=== PATIENT | female | born 1965 | race Caucasian/White ===

== ENCOUNTER 2020-01-18 08:20 | Outpatient (CLI) | payer OTHER, SELFPAY ==
--- NOTE | ~2020-01-18 | MM_ITS ---
EXAMINATION: MM screening stephanie BI w ancelmo HISTORY: Screening TECHNIQUE: Craniocaudal and mediolateral oblique 3-D tomosynthesis images were obtained and synthetic 2-D images were generated. CAD analysis was submitted and interpreted. COMPARISON: Comparison to multiple prior studies sequentially, with oldest reviewed study dated 12/13. BREAST PARENCHYMAL COMPOSITION: There are scattered areas of fibroglandular density. FINDINGS: There is no evidence of suspicious mass, calcification, or architectural distortion to sugg est malignancy in either breast. There has been no suspicious interval change. IMPRESSION: 1. No mammographic evidence of malignancy. 2. Recommend routine screening mammography in one year. BI-RADS Category 1: Negative Reviewed, dictated and finalized at location A.
== END 2020-01-18 08:21 | disposition home or self-care (01) ==
LOC: ANHIMG 08:22
PROVIDERS: PCP Family Medicine; Visit Provider Obstetrics & Gynecology
DX: Z12.31 Encounter for screening mammogram for malignant neoplasm of breast (principal)
CPT/HCPCS: 77063; 77067

== ENCOUNTER → 2020-11-29 10:43 | Outpatient (CLI) | payer OTHER, SELFPAY ==
--- NOTE | ~2020-11-29 | XR_ITS ---
XR lumbar spine 2-3V DATE: 11/29/2020 11:10 INDICATION: Low back pain TECHNIQUE: Standing AP, lateral and coned lateral lumbosacral views COMPARISON: None FINDINGS: There is mild levoscoliosis of the lumbar spine. No fracture or bone destruction is evident. The included lower thoracic and lumbar pedicles are intac t. There is moderate degenerative disease at L4-5 and severe degenerative disc disease at L5-S1. The sacroiliac joints are intact. IMPRESSION: Mild degenerative disc disease at L4-5 and severe degenerative disc disease at L5-S1 Reviewed, dictated and finalized at location B.
== END ==
PROVIDERS: PCP Family Medicine; Visit Provider Physician Assistant
DX: M51.36 Other intervertebral disc degeneration, lumbar region (principal); M51.37 Other intervertebral disc degeneration, lumbosacral region
CPT/HCPCS: 72100

== ENCOUNTER 2021-01-18 08:22 | Outpatient (CLI) | payer OTHER, SELFPAY ==
--- NOTE | ~2021-01-18 | MM_ITS ---
EXAMINATION: MM screening stephanie BI w ancelmo HISTORY: Screening TECHNIQUE: Craniocaudal and mediolateral oblique 3-D tomosynthesis images were obtained and synthetic 2-D images were generated. CAD analysis was submitted and interpreted. COMPARISON: Comparison to multiple prior studies sequentially, with oldest reviewed study dated 06/2015. BREAST PARENCHYMAL COMPOSITION: There are scattered areas of fibroglandular density. FINDINGS: There are developing asymmetries centrally in the right breast on CC view. The left breast is stable without evidence for malignancy. IMPRESSION: 1. Developing right breast asymmetries. 2. Additional mammographic views and possible breast ultrasound are recommended. BI-RADS Category 0: Incomplete: Needs additional imaging evaluation. Reviewed, dictated and finalized at location A. IMPRESSION: 1. Developing right breast asymmetries. 2. Additional mammographic views and possible breast ultrasound are recommended . BI-RADS Category 0: Incomplete: Needs additional imaging evaluation.
== END 2021-01-18 08:23 | disposition home or self-care (01) ==
LOC: ANHIMG 08:23
PROVIDERS: PCP Family Medicine; Visit Provider Obstetrics & Gynecology
DX: Z12.31 Encounter for screening mammogram for malignant neoplasm of breast (principal); R92.8 Other abnormal and inconclusive findings on diagnostic imaging of breast
CPT/HCPCS: 77063; 77067

== ENCOUNTER 2021-02-23 13:10 | Outpatient (CLI) | payer OTHER, SELFPAY ==
--- NOTE | ~2021-02-23 | MM_ITS ---
EXAMINATION: MM diagnostic stephanie RT w ancelmo HISTORY: Right breast asymmetries on screening mammogram TECHNIQUE: Additional 3-D tomosynthesis images of the right breast were performed and synthetic 2-D i mages were generated. CAD analysis was submitted and interpreted. COMPARISON: 01/18/2021, 01/18/2020, 01/01/2019, 12/30/2017 BREAST PARENCHYMAL COMPOSITION: There are scattered areas of fibroglandular density. FINDINGS: There is a return to baseline fibroglandular appearance with spot compression of the right breast in the area questioned on screening mammogram. IMPRESSION: 1. No mammographic evidence of malignancy. 2. Recommend routine screening mammography in one year. BI-RADS Category 1: Negative Reviewed, dictated and finalized at location A.
== END 2021-02-23 13:11 | disposition home or self-care (01) ==
LOC: ANHIMG 13:11
PROVIDERS: PCP Family Medicine; Visit Provider Obstetrics & Gynecology
DX: R92.8 Other abnormal and inconclusive findings on diagnostic imaging of breast (principal)
CPT/HCPCS: 77061; 77065; G0279

== ENCOUNTER 2022-02-14 15:08 | Outpatient (CLI) | payer OTHER, SELFPAY ==
--- NOTE | ~2022-02-14 | MM_ITS ---
EXAMINATION: MM screening stephanie BI w ancelmo HISTORY: Screening mammogram TECHNIQUE: Craniocaudal and mediolateral oblique 3-D tomosynthesis images were obtained and synthetic 2-D images were generated. CAD analysis was submitted and interpreted. COMPARISON: 02/23/2021 diagnostic right mammogram 01/18/2021, 01/18/2020 bilateral screening mammogram examinations BREAST PARENCHYMAL COMPOSITION: There are scattered areas of fibroglandular density. FINDINGS: There is no evidence of suspicious mass, calcification, or architectural distortion to sugg est malignancy in either breast. There has been no suspicious interval change. IMPRESSION: 1. No mammographic evidence of malignancy. 2. Recommend routine screening mammography in one year. BI-RADS Category 1: Negative Reviewed, dictated and finalized at location A.
== END 2022-02-14 15:09 | disposition home or self-care (01) ==
PROVIDERS: PCP Family Medicine; Visit Provider Obstetrics & Gynecology
DX: Z12.31 Encounter for screening mammogram for malignant neoplasm of breast (principal)
CPT/HCPCS: 77063; 77067

== ENCOUNTER 2023-05-16 09:21 | Outpatient (CLI) | payer OTHER, SELFPAY ==
--- NOTE | ~2023-05-16 | MM_ITS ---
EXAMINATION: MM screening stephanie BI w ancelmo HISTORY: Screening mammogram TECHNIQUE: Craniocaudal and mediolateral oblique 3-D tomosynthesis images were obtained and synthetic 2-D images were generated. CAD analysis was submitted and interpreted. COMPARISON: Serial mammographic examinations dated back to 01/01/2019 BREAST PARENCHYMAL COMPOSITION: There are scattered areas of fibroglandular density. FINDINGS: There is an asymmetric up to approximately 6 mm wide and 33 mm anteroposterior new linear b and of density in the central right breast on craniocaudal view, without correlate on the MLO view, w hich is not present either on the rotated lateral craniocaudal view, consistent with composite shadow ing of overlying fibroglandular stroma. There is no evidence of suspicious mass, calcification, or ar chitectural distortion to suggest malignancy in either breast. There has been no suspicious interval change. IMPRESSION: 1. No mammographic evidence of malignancy. 2. Recommend routine screening mammography in one year. BI-RADS Category 1: Negative Reviewed, dictated and finalized at location A. 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
== END 2023-05-16 09:22 | disposition home or self-care (01) ==
LOC: ANHIMG 09:23
PROVIDERS: PCP Family Medicine; Visit Provider Obstetrics & Gynecology
DX: Z12.31 Encounter for screening mammogram for malignant neoplasm of breast (principal)
CPT/HCPCS: 77063; 77067

== ENCOUNTER 2023-11-24 11:29 | Emergency (ER) | payer OTHER, SELFPAY ==
--- NOTE | ~2023-11-24 | XR_ITS ---
EXAMINATION: XR chest 2V DATE: 11/24/2023 12:00 INDICATION: Cough. TECHNIQUE: Frontal and lateral views of the chest were obtained. COMPARISON: None. FINDINGS: There is mild scarring at right lung apex. There is a 1 cm nodule left lower lung zone. The re is no pneumonia, pleural effusion, or pneumothorax. The heart size is normal. IMPRESSION: 1. 1 cm nodule in left lower lung zone suspicious for primary bronchogenic carcinoma. Noncontrast mac st CT is recommended. Reviewed, dictated and finalized at location E. IMPRESSION: 1. 1 cm nodule in left lower lung zone suspicious for primary bronchogenic carc inoma. Noncontrast chest CT is recommended.
[2023-11-24 11:42] VITALS: BP 149/87; PULSE 83; RESP 16; TEMP 37.5; O2SAT 96
--- NOTE | 2023-11-24 12:35 | ED.GENADULT ---
HPI - General Adult General Chief complaint: Upper Respiratory Infection Stated complaint: Sinus Infection Symptoms Source: patient Mode of arrival: ambulatory Limitations: no limitations History of Present Illness HPI narrative: Patient presents for evaluation of a cough for the last 2 weeks. She states she is primarily concerned about her symptoms as she has been on and off sick since last fall, with several sinus infections, COVID, and influenza. She states during most of these episodes she had a cough, which often improved. She often assumes care for grandchild when the grandchild is sick. She states she saw her primary care provider and discussed the frequency with which she was getting ill. She states she had a serum labs performed and had no evidence of leukocytosis. She reports wheezing, some pleuritic chest pain, and some dyspnea on exertion. She is quite active, recently hiking in the [place] and working out regularly. No history of smoking. No fever, chills, nausea or vomiting. She is on estrogen replacement and also has a family history of pulmonary embolism. Related Data Home Medications Medication Instructions Recorded Confirmed escitalopram oxalate 10 mg tablet 10 mg PO DAILY 01/04/23 amoxicillin 875 mg-potassium tablet 11/24/23 clavulanate 125 mg tablet doxycycline hyclate 100 mg tablet mg 11/24/23 Allergies Allergy/AdvReac Type Severity Reaction Status Date / Time No Known Allergies Allergy Mild Unverified 08/30/23 14:47 Review of Systems Review of Systems: CONSTITUTIONAL: Denies fever, chills, or sweats. EYES: Denies visual changes, redness, or discharge. ENT: Denies rhinorrhea, congestion, sore throat, or otalgia. CARDIOVASCULAR: Denies chest pain, palpitations, or edema. RESPIRATORY: Reports cough, wheezing, and some dyspnea on exertion. GASTROINTESTINAL: Denies abdominal pain, nausea, vomiting, or diarrhea. GENITOURINARY: Denies dysuria or hematuria. SKIN: Denies rash or itching. MUSCULOSKELETAL: Denies back pain, joint pain, or myalgia. NEUROLOGIC: Denies headache, numbness, dizziness, or weakness. PSYCHIATRIC: Denies anxiety or depression. FORMERLY [facility] Past Medical History Medical History (Updated 11/24/23 @ 12:40 by Hair Omalley, NAKUL, MILLER) Generalized anxiety disorder Surgical History Surgical History No pertinent past surgical history Family History Family History Father Heart disease Hx CABG Mother Heart disease Hx. stent Diabetes mellitus Hypertension Grandparent Heart disease Social History Social History Smoking status: Never smoker Alcohol intake: current Substance use: never Substance use type: does not use Do You Feel Safe in your Home?: Yes Lack of Transportation: No Lack of Food: Never True Current Housing: I Have Housing Concerned About Future Housing: No Difficulty Paying Gas/Electric Bills: No Difficulty Paying for Meds: No Currently Unemployed: YES Education: High School Diploma/GED Difficulty w/ Childcare or Family Care: No Living arrangements: with family Occupation/Education: other Gender identity (if verbalized by the patient): Female Sexual Orientation (if Verbalized by the Patient): Straight or Heterosexual Spiritual care concerns: No Exam Narrative: GENERAL: Well-appearing, well-nourished, and in no acute distress. HEAD: Normocephalic, atraumatic. EYES: PERRLA and EOMI. ENT: Nares clear, no rhinorrhea or epistaxis. Mucous membranes moist. Oropharynx without tonsillar hypertrophy exudate or other lesions. Bilateral TMs pearly madrigal nonbulging NECK: Supple. No adenopathy or masses. No carotid bruits or JVD CHEST: cough present on exam. There is wheezing no
== END 2023-11-24 12:50 | disposition short-term general hospital (02) ==
PROVIDERS: Emergency Provider Nurse Practitioner; PCP Family Medicine
DX: R91.8 Other nonspecific abnormal finding of lung field (principal)
CPT/HCPCS: 71046; 99213; G0463

== ENCOUNTER 2023-11-24 13:02 | Emergency (ER) | payer OTHER, SELFPAY ==
--- NOTE | ~2023-11-24 | CT_ITS ---
EXAMINATION: CTA chest PE protocol DATE: 11/24/2023 13:37 INDICATION: Cough. Lung nodule. TECHNIQUE: Computed tomography angiography (CTA) of the chest was performed with 100 mL Omnipaque-350 intravenous contrast timed to evaluate the pulmonary arteries. Coronal maximum intensity projection 3D-reconstructions were created by the technologist. Automated exposure control and iterative reconst ruction technique were employed. The dose-length product was 154.34 mGy-cm. COMPARISON: Chest 2 views 11/24/23 FINDINGS: There is mild scarring at right lung apex. There is mild atelectasis in right middle lobe a nd lingula. There is mild bronchiectasis in right middle lobe and lingula. No pleural effusion. The h eart size is normal. No pericardial effusion. There is no pulmonary embolus. There is mild thoracic s pondylosis. There is a benign bone island in T7 vertebral body. IMPRESSION: 1. Mild atelectasis in the lingula correlating with the chest radiograph abnormality. 2. Mild bronchiectasis in the right middle lobe and lingula. 3. No pulmonary embolus. Reviewed, dictated and finalized at location E. IMPRESSION: 1. Mild atelectasis in the lingula correlating with the chest radiograph abnorm ality. 2. Mild bronchiectasis in the right middle lobe and lingula. 3. No pulmonary embolus.
[2023-11-24 13:22] LABS: Basophils Percent Auto 0.4 % (0.2-1.2); Eosinophils Absolute Auto 0.1 K/mm3 (0-0.3); Eosinophils Percent Auto 1.2 % (0-4.4); Hematocrit 44.2 % (37.0-47.0); Immature Granulocyte Absolute 0.06 K/mm3 (0.00-0.031); Immature Granulocyte Percent A 0.7 % (0-0.5); Lymphocytes Percent Auto 28.9 % (18.3-44.2); Mean Corpuscular HGB Conc 33.9 g/dl (32-36); Mean Corpuscular Hemoglobin 30.9 pg (26-34); Mean Corpuscular Volume 90.9 fl (80-100); Mean Platelet Volume 9.8 fl (7.4-10.4); Monocytes Absolute Auto 0.4 K/mm3 (0.1-0.6); Monocytes Percent Auto 4.8 % (2.6-8.5); Neutrophils Absolute Auto 5.3 K/mm3 (1.3-6.7); Platelet Count Result 337 k/mm3 (150-375); Red Blood Count 4.86 M/mm3 (4.2-5.4); Red Cell Distribution Width 13.3 % (11.5-14.5); White Blood Count 8.3 K/mm3 (4.5-10.0)
[2023-11-24 13:33] LABS: Alanine Aminotransferase 24 U/L (6-35); Alkaline Phosphatase 90 U/L (38-126); Anion Gap 10 mmol/L (4-12); Aspartate Amino Transferase 37 U/L (14-36); Bilirubin,Total 1.1 mg/dL (0.2-1.3); Blood Urea Nitrogen 11 mg/dL (7-17); Calcium 9.9 mg/dL (8.4-10.2); Carbon Dioxide 24 mmol/L (22-30); Chloride 105 mmol/L (98-107); Estimated CRCL calculation 50 ml/min; Estimated Glomerular Filt Rate > 60; Glucose 94 mg/dL (65-110); Sodium 139 mmol/L (137-145)
[2023-11-24 14:00] LABS: INR 1.1; Partial Thromboplastin Time 25.3 Seconds (22.3-36.8); Prothrombin Time 14.3 Seconds (11.1-14.7)
[2023-11-24 14:10] VITALS: RESP 20
--- NOTE | 2023-11-24 14:20 | ED.GENADULT ---
HPI - General Adult General Chief complaint: Recheck/Abnormal Lab/Rx Stated complaint: cough Time Seen by Provider: 11/24/23 14:11 History of Present Illness HPI narrative: Patient 58-year-old female who presents emergency department with chief complaint of potential lung mass and potential pulmonary embolism. Patient reports that she has been having a cough for 2 weeks and was seen in urgent care and had a pulmonary nodule that was suspicious for neoplasm the patient was sent to the emergency department for evaluation and she was higher risk for pulmonary embolism. Related Data Home Medications Medication Instructions Recorded Confirmed escitalopram oxalate 10 mg tablet 10 mg PO DAILY 01/04/23 amoxicillin 875 mg-potassium tablet 11/24/23 clavulanate 125 mg tablet doxycycline hyclate 100 mg tablet mg 11/24/23 Allergies Allergy/AdvReac Type Severity Reaction Status Date / Time No Known Allergies Allergy Mild Verified 11/24/23 14:15 Review of Systems Review of Systems: A 10 system review of systems was completed on the patient and is negative except for what is stated in the HPI. Nursing and ancillary documentation was reviewed. COUNTS INCLUDE 234 BEDS AT THE [facility] Past Medical History Medical History Generalized anxiety disorder Surgical History Surgical History No pertinent past surgical history Family History Family History Father Heart disease Hx CABG Mother Heart disease Hx. stent Diabetes mellitus Hypertension Grandparent Heart disease Social History Social History Smoking status: Never smoker Alcohol intake: current Substance use: never Substance use type: does not use Do You Feel Safe in your Home?: Yes Lack of Transportation: No Lack of Food: Never True Current Housing: I Have Housing Concerned About Future Housing: No Difficulty Paying Gas/Electric Bills: No Difficulty Paying for Meds: No Currently Unemployed: YES Education: High School Diploma/GED Difficulty w/ Childcare or Family Care: No Living arrangements: with family Occupation/Education: other Gender identity (if verbalized by the patient): Female Sexual Orientation (if Verbalized by the Patient): Straight or Heterosexual Spiritual care concerns: No Exam Narrative: GENERAL: Well-appearing, well-nourished, and in no acute distress. HEAD: Normocephalic, atraumatic. EYES: PERRLA and EOMI. ENT: Nares clear, no rhinorrhea or epistaxis. Mucous membranes moist. NECK: Supple. CHEST: Clear to auscultation. No respiratory distress. HEART: Regular rate and rhythm. No murmur heard. Normal peripheral pulses. ABDOMEN: Soft, nontender, nondistended, normal active bowel sounds. EXTREMITIES: Normal range of motion. No edema. SKIN: Warm, dry, no rash. NEURO: No focal deficits. Alert and oriented x3. PSYCH: Normal mood and affect. Course Vital Signs Vital signs: Vital Signs Respiratory Rate 11/24/23 14:10 Respiratory Rate 11/24/23 14:10 Medical Decision Making [facility] Narrative Medical decision making narrative: Differential diagnosis includes bronchitis, pulmonary nodule, neoplasm, pulmonary embolism Laboratory studies were obtained on the patient showed normal CBC CMP was within normal limits CTA chest showed IMPRESSION: 1. Mild atelectasis in the lingula correlating with the chest radiograph abnormality. 2. Mild bronchiectasis in the right middle lobe and lingula. 3. No pulmonary embolus Due to the patient's symptoms ongoing for over 2 weeks the patient will be started on doxycycline and prednisone Vital Signs Vital Signs: Vital Signs Respiratory Rate 11/24/23 14:10
[2023-11-24 14:50] VITALS: BP 135/73; PULSE 94; RESP 16; O2SAT 96
== END 2023-11-24 14:50 | disposition home or self-care (01) ==
PROVIDERS: Emergency Medicine; Emergency Provider Emergency Medicine; PCP Family Medicine
DX: J20.8 Acute bronchitis due to other specified organisms (principal); F41.1 Generalized anxiety disorder; Z79.899 Other long term (current) drug therapy
CPT/HCPCS: 36415; 71046; 71275; 80053; 85025; 85610; 85730; 99284; Q9967

== ENCOUNTER 2023-11-27 21:44 | Emergency (ER) | payer OTHER, SELFPAY ==
--- NOTE | ~2023-11-27 | XR_ITS ---
EXAMINATION: XR chest 2V DATE: 11/27/2023 22:25 INDICATION: Chest tightness. TECHNIQUE: Frontal and lateral views of the chest were obtained. COMPARISON: Chest 2 views 11/24/2023 FINDINGS: There is no pneumonia, pleural effusion, or pneumothorax. The heart size is normal. IMPRESSION: 1. No acute cardiopulmonary disease. Reviewed, dictated and finalized at location E.
[2023-11-27 21:45] VITALS: BP 179/96; PULSE 97; RESP 16; TEMP 36.6; O2SAT 98
--- NOTE | 2023-11-27 21:47 | ECG_ITS ---
Test Date: 2023-11-27 21:51:13 Measurements Intervals [place] Rate: 118 P: 63 MS: 140 QRS: 60 QRSD: 81 T: 62 QT: 334 QTc: 470 Interpretive Statements SINUS TACHYCARDIA POSSIBLE LEFT ATRIAL ENLARGEMENT BORDERLINE ST ABNORMALITY- INF/LAT LEADS ABNORMAL ECG No previous ECG available for comparison Electronically Signed On 11-28-2023 06:09:26 CDT by Arie Rojas D.O.
[2023-11-27 22:04] LABS: Basophils Percent Auto 0.2 % (0.2-1.2); Eosinophils Percent Auto 0.2 % (0-4.4); Hematocrit 44.5 % (37.0-47.0); Hemoglobin 14.9 g/dL (12.0-15.0); Immature Granulocyte Percent A 0.8 % (0-0.5); Lymphocytes Percent Auto 15.4 % (18.3-44.2); Mean Corpuscular HGB Conc 33.5 g/dl (32-36); Mean Corpuscular Hemoglobin 30.7 pg (26-34); Mean Corpuscular Volume 91.6 fl (80-100); Monocytes Absolute Auto 0.5 K/mm3 (0.1-0.6); Monocytes Percent Auto 4.1 % (2.6-8.5); Neutrophils Absolute Auto 10.3 K/mm3 (1.3-6.7); Neutrophils Percent Auto 79.3 % (45.5-73.1); Platelet Count Result 368 k/mm3 (150-375); Red Blood Count 4.86 M/mm3 (4.2-5.4); Red Cell Distribution Width 13.2 % (11.5-14.5)
[2023-11-27 22:14] LABS: Alanine Aminotransferase 19 U/L (6-35); Albumin Level 5.2 g/dL (3.5-5.1); Alkaline Phosphatase 92 U/L (38-126); Anion Gap 13 mmol/L (4-12); Aspartate Amino Transferase 23 U/L (14-36); Bilirubin,Total 0.6 mg/dL (0.2-1.3); Blood Urea Nitrogen 18 mg/dL (7-17); Calcium 10.1 mg/dL (8.4-10.2); Carbon Dioxide 23 mmol/L (22-30); Chloride 103 mmol/L (98-107); Estimated CRCL calculation 45 ml/min; Estimated Glomerular Filt Rate > 60; Glucose 119 mg/dL (65-110); Lipase 124 U/L (23-300); Potassium 4.3 mmol/L (3.4-5.0); Sodium 139 mmol/L (137-145)
[2023-11-27 22:15] LABS: INR 1.1; Prothrombin Time 14.6 Seconds (11.1-14.7)
[2023-11-27 22:17] LABS: Partial Thromboplastin Time 26.2 Seconds (22.3-36.8)
[2023-11-27 22:25] LABS: Troponin I < 0.012 ng/mL (0.000-0.034)
[2023-11-27 22:46] VITALS: BP 160/92; PULSE 80; RESP 16; O2SAT 98
[2023-11-28 01:10] VITALS: PULSE 88; RESP 15; O2SAT 99
--- NOTE | 2023-11-28 01:34 | ED.GENADULT ---
HPI - General Adult General Chief complaint: Recheck/Abnormal Lab/Rx Stated complaint: htn Time Seen by Provider: 11/27/23 22:33 History of Present Illness HPI narrative: patient is a 58-year-old female who presents ER with complaints of chest pain and elevated blood pressure. Was recently seen in the ER to rule out a cancerous mass. She followed up with her PCP in blood pressure was elevated today. She has been on prednisone. She also reports that she has been having burning central chest discomfort for several days. She was recently started on a PPI but has only taken 1 dose. No exertional discomfort with her chest pain. Seems worse at night. Unsure if it is related to lying down. Blood pressure today was in the 200s and she checked it so she came to the ER. She has no history of requiring hypertensive medications. Related Data Home Medications Medication Instructions Recorded Confirmed escitalopram oxalate 10 mg tablet 10 mg PO DAILY 01/04/23 amoxicillin 875 mg-potassium tablet 11/24/23 clavulanate 125 mg tablet doxycycline hyclate 100 mg tablet mg 11/24/23 estradiol-norethindrone acet 1 1 tablet PO DAILY 11/27/23 mg-0.5 mg tablet Allergies Allergy/AdvReac Type Severity Reaction Status Date / Time No Known Allergies Allergy Mild Verified 11/27/23 15:15 Review of Systems Review of Systems: All systems reviewed & are unremarkable except as noted in HPI and below Constitutional: Constitutional: Reports no additional constitutional complaints ENT: Reports system reviewed and no additional complaints, except as documented Cardiovascular: Cardiovascular: Reports chest pain, Denies rapid heart rate and Denies radiating jaw, neck or arm pain Respiratory: Respiratory: Reports no additional respiratory complaints Gastrointestinal: Gastrointestinal: Denies abdominal pain, Reports heartburn, Denies nausea and Denies vomiting Musculoskeletal: Musculoskeletal: Reports no additional musculoskeletal complaints PMFSH Past Medical History Medical History Generalized anxiety disorder Surgical History Surgical History No pertinent past surgical history Family History Family History Father Heart disease Hx CABG Mother Heart disease Hx. stent Diabetes mellitus Hypertension Grandparent Heart disease Social History Social History Smoking status: Never smoker Alcohol intake: current Substance use: never Substance use type: does not use Do You Feel Safe in your Home?: Yes Lack of Transportation: No Lack of Food: Never True Current Housing: I Have Housing Concerned About Future Housing: No Difficulty Paying Gas/Electric Bills: No Difficulty Paying for Meds: No Currently Unemployed: YES Education: High School Diploma/GED Difficulty w/ Childcare or Family Care: No Living arrangements: with family Occupation/Education: other Gender identity (if verbalized by the patient): Female Sexual Orientation (if Verbalized by the Patient): Straight or Heterosexual Spiritual care concerns: No Exam Narrative: GENERAL: Well-appearing, well-nourished, and in no acute distress. HEAD: Normocephalic, atraumatic. ENT: Mucous membranes moist. NECK: Supple. CHEST: Clear to auscultation. No respiratory distress. HEART: Regular rate and rhythm. Normal peripheral pulses. ABDOMEN: Soft, nontender, nondistended. EXTREMITIES: Normal range of motion. No edema. SKIN: Warm, dry, no rash. NEURO: Alert and oriented x3. PSYCH: Normal mood and affect. Course Course Emergency Course: Mild elevation white blood cell count due to prednisone. Troponin negative x2. EKG nonischemic. Patient appropriate for discharge home. Blo
[2023-11-28 01:37] LABS: Troponin I < 0.012 ng/mL (0.000-0.034)
[2023-11-28 01:57] VITALS: BP 153/87; PULSE 84; RESP 12; O2SAT 97
[2023-11-28 02:03] VITALS: BP 152/80; PULSE 82; RESP 15; O2SAT 100
== END 2023-11-28 02:04 | disposition home or self-care (01) ==
PROVIDERS: Emergency Provider Emergency Medicine; PCP Family Medicine
DX: R07.9 Chest pain, unspecified (principal); I10 Essential (primary) hypertension
CPT/HCPCS: 36415; 71046; 80053; 83690; 84484; 85025; 85610; 85730; 93005; 99284

== ENCOUNTER 2024-01-16 02:22 | Day surgery (SDC) | payer OTHER, SELFPAY ==
[2024-01-09 13:49] VITALS: BMI 24.1
--- NOTE | 2024-01-09 13:58 | PC.NURSE ---
Report to the Outpatient Waiting Room, entrance under the green pavilion located off [facility], at time _0630_ on date _[id number]_. Planned Procedure Time: _0830_.? Time changes happen often and if your time is changed the preop area will call you the afternoon before. - You and your visitor will be asked to self-screen and do not enter if you have any COVID symptoms. Please call surgeon if you need to reschedule. - A mask is optional within the hospital at this time. Patients may have clear liquids (water, carbonated beverages, clear teas, apple juice) until 3 hours prior to surgery with a maximum of 20 ounces. - No food from midnight until time of surgery and no smoking Take only the following medications with a SIP of water on the morning of surgery: ___Escitalopram, Estradiol-norethindrone, and if needed Alprazolam. DO NOT STOP ANY OF YOUR OTHER PRESCRIPTION MEDICATIONS PRIOR TO SURGERY EXCEPT THE FOLLOWING Medications to discontinue per physician All vitamins and probiotic Date to take last uhvb___[id number] Please no make-up, nail mosotho, hairspray, perfume, deodorant, or body powder the day of surgery.? No jewelry (including any body piercings) or valuables the day of surgery, leave them at home.? Please take a shower or bath the night before, or the morning of, surgery with an antibacterial soap.? Wear comfortable, loose fitting clothing.? - Jewelry must be removed prior to entering the operating room.? Rings and piercings that are not removed may be cut off. - The hospital will not accept responsibility for valuables.? - Please leave all valuables, including medications, at home the day of surgery. If you are going home after surgery, a licensed tractor driver teamster must drive you home.? - NO public transportation without another adult if you receive anesthesia. - We recommend that an adult stay with you for 24 hours following discharge. - We also recommend that you do not drive, make important decision, drink alcoholic beverages, or take any drugs that were not prescribed by your health care provider for at least 24 hours after your discharge time. Follow any additional instructions given to you from your surgeon. Telephone instructions given to __Kalelynsey__and asked if any additional questions and then verbalized understanding. Patient advised to call surgeon office or pre surgery nurse liaison [phone] if any additional questions.
--- NOTE | 2024-01-14 13:14 | PM.IMHP ---
H&P: HPI History of Present Illness Date/Time: 01/14/24 13:14 Chief Complaint: Postmenopausal bleeding Narrative: 58-year-old 3 para 3 admitted for hysteroscopy and dilatation curettage secondary to postmenopausal bleeding. She had ultrasound which showed some blood flow thickened endometrium. She will undergo hysteroscopy and dilatation curettage. Risks and benefits reviewed including not exclusive of , aspiration pneumonia, bleeding, transfusion, perforation injury to bowel, bladder, ureters, or other internal organs with need for open laparotomy and repair. She received the ACOG handouts entitled hysteroscopy as well as dilatation curettage. She had all questions answered. She asked to proceed PMFSH Past Medical History Medical History Generalized anxiety disorder Hypertension Surgical History Surgical History No pertinent past surgical history Family History Family History Father Heart disease Hx CABG Mother Heart disease Hx. stent Diabetes mellitus Hypertension Grandparent Heart disease Social History Social History Smoking status: Never smoker Alcohol intake: current Substance use: never Substance use type: does not use Do You Feel Safe in your Home?: Yes Lack of Transportation: No Lack of Food: Never True Current Housing: I Have Housing Concerned About Future Housing: No Difficulty Paying Gas/Electric Bills: No Difficulty Paying for Meds: No Currently Unemployed: YES Education: High School Diploma/GED Difficulty w/ Childcare or Family Care: No Living arrangements: with family Occupation/Education: other Gender identity (if verbalized by the patient): Female Sexual Orientation (if Verbalized by the Patient): Straight or Heterosexual Spiritual care concerns: No Meds Home Medications and Allergies Home Medications Medication Instructions Recorded Confirmed Type escitalopram oxalate 10 mg tablet 10 mg PO DAILY 01/04/23 01/10/24 History zolpidem 5 mg tablet 5 mg PO QHS #30 tabs 11/26/23 01/10/24 Rx estradiol-norethindrone acet 1 1 tablet PO DAILY 11/27/23 01/10/24 History mg-0.5 mg tablet montelukast 10 mg tablet 10 mg PO QHS 90 days #90 tabs 01/04/24 01/10/24 Rx Lactobacillus 40-Bifidobact 1 cap PO DAILY 01/09/24 01/10/24 History 3-S.thermophilus 100 billion cell capsule (Probiotic) ascorbic acid (vitamin C) 1,000 mg 1 g PO DAILY 01/09/24 01/10/24 History tablet (Vitamin C) cetirizine 10 mg tablet (Zyrtec) 10 mg PO DAILY 01/09/24 01/10/24 History fwjccqpz-vhew-yxad 8 mg-folic 400 1 tablet PO DAILY 01/09/24 01/10/24 History mcg-K 50 mcg-lutein 300 mcg tablet (Multivitamin Women 50 Plus) valacyclovir 500 mg tablet 500 mg PO DAILY PRN Cold Sores 01/09/24 01/10/24 History alprazolam 0.5 mg tablet 0.5 mg PO QHS PRN anxiety #30 tabs 01/13/24 01/13/24 Rx losartan 25 mg tablet 25 mg PO DAILY #30 tabs 01/13/24 01/13/24 Rx Allergies Allergy/AdvReac Type Severity Reaction Status Date / Time No Known Allergies Allergy Mild Verified 01/13/24 14:03 Exam Const: General: cooperative, healthy appearing, comfortable and average body habitus Orientation/consciousness: oriented to person, oriented to place and oriented to time Resp: Effort & Inspection: normal respiratory effort Cardio: Rate: regular rate Rhythm: regular rhythm Heart sounds: S1 normal heart sound present and S2 normal heart sound present GI: Inspection: normal to inspection : External Female Exam: normal external appearance Speculum Exam - Vagina: normal appearance of the vagina Speculum Exam - Cervix: normal appearance of the cervix Bimanual exam- vagina & uterus: non-tender Bimanua
--- NOTE | 2024-01-16 05:43 | WPDHPUPDATE1 ---
History and Physical Update Update Date/Time: 01/16/24 05:43 History and Physical has been reviewed, including an updated exam of the patient. There are NO changes in the patient's condition. Risks, benefits, and alternatives have been discussed and questions answered. Patient agrees to proceed with procedure.
--- NOTE | 2024-01-16 07:26 | WPDANESEPPF ---
Anes - Initial Pre Proc Eval Procedure: Operation Date: 01/16/24 08:30 Proposed Procedures p Hysteroscopy Dilation and Curettage - Cullen Hnery MD Date/Time: 01/16/24 07:26 Surgeon: Cullen Henry MD Pre Op Diagnosis: post menopausal bleeding Patient Data Age: 58 Gender: F Height: 1.55 m Weight: 58 kg Allergies Allergy/AdvReac Type Severity Reaction Status Date / Time No Known Allergies Allergy Mild Verified 01/13/24 14:03 Home Medications Medication Instructions Recorded Confirmed Type escitalopram oxalate 10 mg tablet 10 mg PO DAILY 01/04/23 01/10/24 History zolpidem 5 mg tablet 5 mg PO QHS #30 tabs 11/26/23 01/10/24 Rx estradiol-norethindrone acet 1 1 tablet PO DAILY 11/27/23 01/10/24 History mg-0.5 mg tablet montelukast 10 mg tablet 10 mg PO QHS 90 days #90 tabs 01/04/24 01/10/24 Rx Lactobacillus 40-Bifidobact 1 cap PO DAILY 01/09/24 01/10/24 History 3-S.thermophilus 100 billion cell capsule (Probiotic) ascorbic acid (vitamin C) 1,000 mg 1 g PO DAILY 01/09/24 01/10/24 History tablet (Vitamin C) cetirizine 10 mg tablet (Zyrtec) 10 mg PO DAILY 01/09/24 01/10/24 History vfclguoa-mpmp-jova 8 mg-folic 400 1 tablet PO DAILY 01/09/24 01/10/24 History mcg-K 50 mcg-lutein 300 mcg tablet (Multivitamin Women 50 Plus) valacyclovir 500 mg tablet 500 mg PO DAILY PRN Cold Sores 01/09/24 01/10/24 History alprazolam 0.5 mg tablet 0.5 mg PO QHS PRN anxiety #30 tabs 01/13/24 01/13/24 Rx losartan 25 mg tablet 25 mg PO DAILY #30 tabs 01/13/24 01/13/24 Rx hydrocodone 5 mg-acetaminophen 325 1 tablet PO Q4H PRN pain #20 tabs 01/16/24 Rx mg tablet Patient hx anesthesia problems: none Family hx anesthesia problems: none Results Review: All pre-operative results and documents have been reviewed as part of the pre-operative evaluation. [facility] Past Medical History Medical History (Updated 01/16/24 @ 08:06 by Michael Lowry DO) Anxiety Bronchiectasis Generalized anxiety disorder Hypertension Surgical History Surgical History No pertinent past surgical history Family History Family History Father Heart disease Hx CABG Mother Heart disease Hx. stent Diabetes mellitus Hypertension Grandparent Heart disease Social History Social History Smoking status: Never smoker Alcohol intake: current Substance use: never Substance use type: does not use Do You Feel Safe in your Home?: Yes Lack of Transportation: No Lack of Food: Never True Current Housing: I Have Housing Concerned About Future Housing: No Difficulty Paying Gas/Electric Bills: No Difficulty Paying for Meds: No Currently Unemployed: YES Education: High School Diploma/GED Difficulty w/ Childcare or Family Care: No Living arrangements: with family Occupation/Education: other Gender identity (if verbalized by the patient): Female Sexual Orientation (if Verbalized by the Patient): Straight or Heterosexual Spiritual care concerns: No Anes - Eval Final PreProcedure Day of Procedure 01/16/24 07:26 Patient weight: normal Heart: regular rate and rhythm Lungs: clear to auscultation and normal air movement Airway: Mallampati scale class II Neurological: alert and oriented Last oral intake: >/= 8 hours ASA classification: III Emergent: no Anesthetic plan: proceed Anesthesia type and monitoring: general GIVS and standard monitoring Results Review: All pre-operative results and documents have been reviewed as part of the pre-operative evaluation. Informed Consent: The patient's anesthetic plan and its attendant risks and benefits were discussed with the patient/family/POA. Questions were solicited and answers provided to the satisfaction of the patie
[2024-01-16 07:50] VITALS: BP 118/71; PULSE 83; RESP 14; TEMP 36.4; O2SAT 100
[2024-01-16] MEDS: ACETAMINOPHEN 500 MG TABLET 1000 MG PO (07:50)
[2024-01-16] MEDS: LACTATED RINGERS 1,000 ML 30 ML IV CONT (07:50)
[2024-01-16] MEDS: LIDOCAINE HCL 1% LOCAL INJ 20 ML VIAL 10 ML INFILTRATE (08:46)
--- NOTE | 2024-01-16 08:54 | P.OP_ITS ---
Procedure Note - Detailed Date of Procedure 01/16/24 Pre-op Diagnosis post menopausal bleeding Post-op Diagnosis Other (Postmenopausal bleeding with uterine polyp) Procedure Performed hysteroscopy/ polypectomy/dilatation and curettage Surgeon Cullen Henry MD Anesthesia MAC and Local Indications 58-year-old female with postmenopausal bleeding Findings small uterine polyp that had a benign appearance Description of Procedure the patient was prepped draped in the normal sterile fashion placed in the dorsal lithotomy position. Under excellent IV sedation weighted speculum placed in posterior fornix vagina. Anterior lip of the cervix grasped with single- tooth tenaculum. 2.5cc of 1% xylocaine anesthesia placed at 2, 4, 8, 10:00 a.m. of the cervix. Uterus sounded to 8cm. Serial dilatation with fragmented dilators performed followed by passage of the 5mm visualizing hysteroscope using normal saline as visualizing medium. A small uterine polyp was seen in photo documentation was undertaken. Using the reticulating instrument the polyp was removed in toto. The uterus was scraped over 360? and a until good grating sound was heard. The instruments withdrawn the patient was awakened. She went to recovery in satisfactory condition. All sponge, needle, instrument counts were correct. There were no immediate complications Estimated Blood Loss 5 Drains No Packing No Pathology Yes Complications No immediate complications Condition Stable Disposition PACU
[2024-01-16 09:00] VITALS: BP 123/73; PULSE 65; RESP 14; O2SAT 100
[2024-01-16 09:30] VITALS: BP 132/72; PULSE 64
== END 2024-01-16 10:00 | disposition home or self-care (01) ==
PROVIDERS: PCP Family Medicine; Visit Provider Obstetrics & Gynecology
PROC: 0U5B8ZZ Destruction of Endometrium, Via Natural or Artificial Opening Endoscopic (ICD-10-PCS; CPT 58563; principal; 2024-01-16 08:30)
DX: N95.0 Postmenopausal bleeding (principal); N84.0 Polyp of corpus uteri; I10 Essential (primary) hypertension; F41.1 Generalized anxiety disorder
CPT/HCPCS: 58558; 88305; A9270; J1100; J2250; J2405; J2704; J3010; J7120

== ENCOUNTER 2024-01-27 09:01 | Outpatient (CLI) | payer OTHER, SELFPAY ==
--- NOTE | 2024-01-31 14:36 | WPDPFTINT ---
PFT Procedure Performed PFT Procedure Performed Spirometry with Pre/Post Bronchodilator Plethysmography (Lung Vol) Diffusing Cap (DLCO) Flow Vol Loop PFT Interpretation Lung volumes were measured with the body plethysmography method. Lung volumes are unremarkable. Spirometry showed normal expiratory flow rates and a normal FEV1 to FVC ratio 72%. Following administration of a bronchodilator there was no significant increase in the expiratory flow rates. Lung diffusion capacity is within the normal range at 103% predicted. The flow-volume loop is unremarkable. Impression: Spirometry, lung volumes, and lung diffusion capacity all within the normal range.
== END 2024-01-27 09:02 | disposition home or self-care (01) ==
PROVIDERS: PCP Family Medicine; Visit Provider Nurse Practitioner Family
DX: R05.9 Cough, unspecified (principal)
CPT/HCPCS: 94060; 94726; 94729

== ENCOUNTER 2024-06-05 07:29 | Outpatient (CLI) | payer OTHER, SELFPAY ==
--- NOTE | ~2024-06-05 | MM_ITS ---
EXAMINATION: MM screening [facility] BI w [facility] HISTORY: Screening TECHNIQUE: Craniocaudal and mediolateral oblique 3-D tomosynthesis images were obtained and synthetic 2-D images were generated. CAD analysis was submitted and interpreted. COMPARISON: Comparison to multiple prior studies sequentially, with oldest reviewed study dated 01/01. BREAST PARENCHYMAL COMPOSITION: Not dense: There are scattered areas of fibroglandular density. FINDINGS: There is no evidence of suspicious mass, calcification, or architectural distortion to sugg est malignancy in either breast. There has been no suspicious interval change. IMPRESSION: 1. No mammographic evidence of malignancy. 2. Recommend routine screening mammography in one year. BI-RADS Category 1: Negative Reviewed, dictated and finalized at location A. ER GAS
--- OUTSIDE RECORDS SUMMARY | 2024-06-11 05:05 | XMS_ITS | Continuity of Care Document ---
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 [address] , [address], [place], [address], [place]. tel:[phone] Family History Family Member Type Diagnosis Age At Onset No Information Payers Payer name Insurance type Covered republican ID Authoriza tion(s) No Information Social History Type Description Quantity Date Captured Comments Sex Female Smoking Status No Information Chief Complaint And Reason For Visit No Information Reason For Referral Reason For Referral No Information History Of Present Illness Encounter Date Complaint History Of Prese nt Illness No Information Functional Status Date Functional Assessmen t No Information Instructions Date Instruction Additional Infor mation No Information Assessments Type Assessment Date No Information Patient Care Teams Name Effective Dates (start - stop) Status Members No Information
== END 2024-06-05 07:30 | disposition home or self-care (01) ==
LOC: ANHIMG 07:33
PROVIDERS: PCP Family Medicine; Visit Provider Obstetrics & Gynecology
DX: Z12.31 Encounter for screening mammogram for malignant neoplasm of breast (principal)
CPT/HCPCS: 77063; 77067

== ENCOUNTER 2024-06-24 08:27 | Outpatient (CLI) | payer OTHER, SELFPAY ==
[2024-06-24 14:08] LABS: Basophils Percent Auto 0.7 % (0.2-1.2); Eosinophils Absolute Auto 0.1 K/mm3 (0-0.3); Hematocrit 42.9 % (37.0-47.0); Hemoglobin 14.1 g/dL (12.0-15.0); Immature Granulocyte Absolute 0.02 K/mm3 (0.00-0.031); Immature Granulocyte Percent A 0.3 % (0-0.5); Lymphocytes Absolute Auto 1.98 K/mm3 (0.9-3.2); Lymphocytes Percent Auto 33.3 % (18.3-44.2); Mean Corpuscular HGB Conc 32.9 g/dl (32-36); Mean Corpuscular Hemoglobin 29.9 pg (26-34); Mean Corpuscular Volume 90.9 fl (80-100); Mean Platelet Volume 10.7 fl (7.4-10.4); Monocytes Absolute Auto 0.3 K/mm3 (0.1-0.6); Monocytes Percent Auto 5.7 % (2.6-8.5); Neutrophils Absolute Auto 3.4 K/mm3 (1.3-6.7); Platelet Count Result 290 k/mm3 (150-375); Red Blood Count 4.72 M/mm3 (4.2-5.4); Red Cell Distribution Width 12.9 % (11.5-14.5); White Blood Count 5.9 K/mm3 (4.5-10.0)
[2024-06-24 16:27] LABS: Alanine Aminotransferase 35 U/L (6-35); Albumin Level 4.2 g/dL (3.5-5.1); Alkaline Phosphatase 88 U/L (38-126); Anion Gap 7 mmol/L (4-12); Aspartate Amino Transferase 43 U/L (14-36); Bilirubin,Total 0.6 mg/dL (0.2-1.3); Blood Urea Nitrogen 19 mg/dL (7-17); Calcium 9.6 mg/dL (8.4-10.2); Carbon Dioxide 29 mmol/L (22-30); Chloride 105 mmol/L (98-107); Cholesterol 183 mg/dL (0-200); Estimated Glomerular Filt Rate > 60; Glucose 62 mg/dL (65-110); HDL Direct 76 mg/dL; Magnesium 2.2 mg/dL (1.6-2.3); Potassium 4.9 mmol/L (3.4-5.0); Sodium 141 mmol/L (137-145); Triglycerides 41 mg/dL (<150)
[2024-06-24 16:38] LABS: LDL Cholesterol Direct 90 mg/dL
[2024-06-24 17:03] LABS: Vitamin D 25 Hydroxy 76.1 ng/mL
[2024-06-24 17:53] LABS: Folic Acid > 20.0 ng/mL (2.76->20)
[2024-06-24 19:28] LABS: Hemoglobin A1C 5.3 % (<5.7)
== END 2024-06-24 08:28 | disposition home or self-care (01) ==
LOC: ANHGOSHLAB 08:29
PROVIDERS: PCP Family Medicine; Visit Provider Nurse Practitioner
DX: G25.81 Restless legs syndrome (principal); R73.9 Hyperglycemia, unspecified; Z13.220 Encounter for screening for lipoid disorders; Z13.29 Encounter for screening for other suspected endocrine disorder
CPT/HCPCS: 36415; 80053; 80061; 82306; 82607; 82728; 82746; 83036; 83735; 84443; 85025

== ENCOUNTER 2024-10-14 10:00 | Outpatient (RCR) | payer OTHER, SELFPAY ==
--- NOTE | 2024-09-08 10:56 | OPREHPOC ---
Outpatient Therapy Plan of Care This is a Multidisciplinary Plan of Care that may contain components documented by all disciplines (PT, OT, and ST.) PT Problem 1 PT Problem #1 Knowledge Deficit PT Goal 1 Goal / Goal Update 1. Pt to be IND with issued HEP Target Visit 10 PT Problem 2 PT Problem #2 Pain PT Goal 1 Goal / Goal Update 1. pt to report pain no greater than 3/10 in the last week 2. Pt to improve quick dash to no greater than 15% disability. Target Visit 10 PT Problem 3 PT Problem #3 Impaired Range of Motion PT Goal 1 Goal / Goal Update 1. pt to improve active shoulder flexion and abduction to 150 deg ea 2. Pt to be able to lift 10lb box overhead without compensations Target Visit 10
--- NOTE | 2024-09-08 10:56 | PTOPEVAL1 ---
Assessment and note entered by Cherie Gee, PT, DPT Evaluation Information Assessment Status Evaluation Diagnosis R shoulder pain ICD-10 Condition Codes (PT) Pain in right shoulder M25.511 Onset 3 months Subjective Information Pt states reports lateral R shoulder pain, about 3 months, without an EMMANUELLE. States she will wake up in the night with sharp shoulder pains. Works out daily. Reports full ROM and strength. Reports no pain at rest, states pain can get up to a 7/10 when exercising. Reported Pain Level Pain Score 0: Self Report Assessment PT Clinical Summary Pt presents to therapy today for her initial evaluation with a diagnosis of R shoulder pain. Today she demonstrates decreased R shoulder ROM in all directions, decreased R shoulder strength, and compensatory movement patterns. She has accessory upper trap activation with overhead motions. Skilled therapy services are indicated to address the deficits noted above, to manage pain, and to return to prior level of activity. Plan of Care Interventions Electrical Stimulation,Gait Training,Hot Pack/Cold Pack,Manual Therapy,Neuro Re-education,Patient/ Caregiver Education,Therapeutic Activities, Therapeutic Exercise PT Services Indicated Yes Treatment Frequency and 2x/wk for 10 visits Duration These treatments will address the objective and functional deficits as defined above. The patient will be advanced safely and appropriately in order for the patient to progress towards his/her prior level of function. Additional exercises will be introduced and as well as a comprehensive home exercise program upon discharge, if needed, ?to ensure carryover of functional gains achieved in the clinic. This treatment plan has been reviewed and agreement upon by the patient.
--- NOTE | 2024-10-14 10:50 | PTOPDC ---
Assessment and note entered by Oleg Julien Evaluation Information Assessment Status Discharge Diagnosis R shoulder pain ICD-10 Condition Codes (PT) Pain in right shoulder M25.511 Onset 3 months Subjective Information Pt. reports that she was gone for 2 weeks on vacation. She reports pain is much less intense and recalls no problems during vacation. She reports she has increased her resistance with exercise, without pain increase. She states that she will continue with her HEP and is ready for discharge. Reported Pain Level Pain Score 0: Self Report Assessment PT Clinical Summary Pt. has attended a total of 7 treatment sessions. She has met all goals established at the initial evaluation. She still presents with slight IR tightness at the right shoulder, but is not limited in functional activities. At this time pt. has a comprehensive HEP and will be discharged from our care. Plan of Care PT Services Indicated No
== END 2024-10-14 11:30 | disposition home or self-care (01) ==
LOC: ANHGOSHPT 10:00
PROVIDERS: PCP Family Medicine; Visit Provider Student in an Organized Health Care Education/Training Program
DX: M25.511 Pain in right shoulder (principal)
CPT/HCPCS: 97014; 97110; 97112; 97140; 97161; G0283

== ENCOUNTER 2025-01-28 10:38 | Outpatient (CLI) | payer OTHER, SELFPAY ==
--- NOTE | ~2025-01-28 | XR_ITS ---
XR lumbar spine 2-3V Indication: Radiculopathy, lumbar region, low back pain x 6 months Comparison: None Findings: Mild levoconvex scoliosis. Grade 1 anterolisthesis L4 on L5, no fracture. Moderate loss of disc at L4-5 and L5-S1. Soft tissues unremarkable Impression: No acute abnormality. Reviewed, dictated and finalized at location A. Impression: No acute abnormality.
== END 2025-01-28 10:39 | disposition home or self-care (01) ==
PROVIDERS: PCP Internal Medicine; Visit Provider Clinical Nurse Specialist
DX: M54.16 Radiculopathy, lumbar region (principal)
CPT/HCPCS: 72100

== ENCOUNTER 2025-02-18 08:24 | Emergency (ER) | payer OTHER, SELFPAY ==
[2025-02-18 08:31] VITALS: BP 127/88; PULSE 92; RESP 20; TEMP 37.1; O2SAT 100
--- NOTE | 2025-02-18 09:01 | ED.WOUNDLAC ---
HPI - Wound/Laceration General Chief Complaint: Wound/Laceration Stated Complaint: Sliced her thumb open Time Seen by Provider: 02/18/25 08:50 Source: patient and RN notes reviewed Mode of arrival: ambulatory Limitations: no limitations History of Present Illness HPI narrative: 59-year-old female presents Express Care complaining of right thumb injury. Patient said yesterday approximately 17-18 hours ago she was cutting potatoes with a mandoline when she cut tip of her right thumb. Patient reports laceration to the tip of her right thumb, she denies losing the skin. Patient here for further evaluation my and if it needs closure not. Patient's tetanus is not up today. Hemostasis achieved prior to arrival. Patient denies any other injuries. Related Data Home Medications ?Medication ?Instructions ?Recorded ?Confirmed ?Last Taken ?Type estradiol-norethindrone acet 1 1 tablet PO DAILY 11/27/23 01/26/25 01/16/24 History mg-0.5 mg tablet ascorbic acid (vitamin C) 1,000 mg 1 g PO DAILY 01/09/24 01/26/25 Unknown History tablet (Vitamin C) [id number] 8 mg-folic 400 1 tablet PO DAILY 01/09/24 01/26/25 Unknown History mcg-K 50 mcg-lutein 300 mcg tablet (Multivitamin Women 50 Plus) valacyclovir 500 mg tablet 500 mg PO DAILY PRN Cold Sores 01/09/24 01/26/25 Unknown History azelastine 137 mcg (0.1 %) nasal 1 spray intranasal Q12H 06/22/24 01/26/25 Unknown History spray cetirizine 10 mg tablet (Zyrtec) 10 mg PO DAILY PRN 01/26/25 01/26/25 Unknown History zolpidem 5 mg tablet 5 mg PO QHS PRN 01/26/25 01/26/25 Unknown History Allergies Allergy/AdvReac Type Severity Reaction Status Date / Time No Known Allergies Allergy Mild Verified 02/18/25 08:30 Review of Systems Review of Systems: CONSTITUTIONAL: Denies fever, chills, or sweats. EYES: Denies visual changes, redness, or discharge. ENT: Denies rhinorrhea, congestion, sore throat, or otalgia. CARDIOVASCULAR: Denies chest pain, palpitations, or edema. RESPIRATORY: Denies cough or dyspnea. GASTROINTESTINAL: Denies abdominal pain, nausea, vomiting, or diarrhea. GENITOURINARY: Denies dysuria or hematuria. SKIN: Denies rash or itching. Positive for laceration. MUSCULOSKELETAL: Denies back pain, joint pain, or myalgia. NEUROLOGIC: Denies headache, numbness, or weakness. PSYCHIATRIC: Denies anxiety or depression. All other systems reviewed are negative, except as documented in HPI. [facility] Past Medical History Medical History Anxiety Hypertension Bronchiectasis Generalized anxiety disorder Surgical History Surgical History No pertinent past surgical history Family History Family History Father Heart disease Hx CABG Mother Heart disease Hx. stent Diabetes mellitus Hypertension Grandparent Heart disease Social History Social History Smoking status: Never smoker Alcohol intake: current Substance use: never Substance use type: does not use Do You Feel Safe in your Home?: Yes Lack of Transportation: No Lack of Food: Never True Current Housing: I Have Housing Concerned About Future Housing: No Difficulty Paying Gas/Electric Bills: No Difficulty Paying for Meds: No Currently Unemployed: YES Education: High School Diploma/GED Difficulty w/ Childcare or Family Care: No Living arrangements: with family Occupation/Education: other Gender identity (if verbalized by the patient): Female Sexual Orientation (if Verbalized by the Patient): Straight or Heterosexual Spiritual care concerns: No Comments At the time of my signature, I reviewed and agree with the nursing past medical, surgical, social, and family history. There is no relevant family history pertinent to the patient complaint. Exam Narrative: GENERAL: This is a well-nourished, well-developed adult, in no apparent distress. They are non ill-appearing, nontoxic appearing. HEAD: normocephalic, atraumatic. EYES: Sclera clear/white. Conjunctiva normal. Vision is grossly intact. Extraocular movements intact EARS: External ears normal, Hearing grossly intact. NOSE: External nose normal THROAT: Mucous membranes moist, NECK: Neck supple, CARDIOVASCULAR: Regular rate and rhythm RESPIRATORY: Respiratory rate normal, respiratory effort nonlabored, no respiratory distress SKIN: Right thumb: Laceration to the tip of a right palmar surface of the thumb. Nail bed and plate heard intact. Skin is well approximated. Wound is U shaped. Skin attached well, no movable skin flaps. No erythema, no swelling, no bruising, no area of fluctuance or induration. No exudate. Measures approximately 1 cm long. Capillary refill less than 2 seconds. Normal sensation. Normal range of motion of thumb. Neurovascular status intact distal injury. NEURO: awake, alert, and oriented to person, place and time. There were no obvious focal neurologic abnormalities. EXTREMITIES: No joint tenderness, effusion, or edema noted. Course Course Emergency Course: Portions of this record may have been created with voice recognition software Level of Care: Express Care Visit Vital Signs Vital signs: Vital Signs Temperature 98.7 F 02/18/25 08:31 Pulse Rate 92 02/18/25 08:31 Respiratory Rate 20 02/18/25 08:31 Blood Pressure 127/88 02/18/25 08:31 Pulse Oximetry 100 02/18/25 08:31 Oxygen Delivery Room Air 02/18/25 08:31 Temperature 98.7 F 02/18/25 08:31 Pulse Rate 92 02/18/25 08:31 Respiratory Rate 20 02/18/25 08:31 Blood Pressure 127/88 02/18/25 08:31 Pulse Oximetry 100 02/18/25 08:31 Oxygen Delivery Room Air 02/18/25 08:31 Reviewed Procedures Laceration Laceration 1: Date: 02/18/25 Time: 09:10 Site: hand (Right thumb) Side (If applicable): right Size (cm): 1 Description: irregular (U shaped) and clean Depth: simple, single layer Pre-repair: wound explored and irrigated ====== Skin Level ====== Skin layer closed with: steri strips (1 steri stip, benzoin applied) ====== Subcutaneous Layer ====== ====== Muscle Layer ====== ====== Tendon Layer ====== Dressing: Non adherent dressing applied over wound. Patient tolerated procedure well. MDM - Wound/Laceration MDM Narrative Medical decision making narrative: Patient's small laceration tip of right thumb. No indication for closure given length injury. Steri-Strips applied loosely over laceration to help anchor the skin. Wound was cleansed by nursing staff. No evidence of infection. Patient's tetanus is updated. Will refer patient hand specialist if she develops complications since that is the tip of her finger. Discussed physical exam findings. Advised supportive measures and signs/symptoms to go to the ER. Pt is appropriate for outpt treatment and f/u. Differential Diagnosis Differential diagnosis: Likely laceration, abrasion and avulsion of skin Critical Care Time Critical Care Time Critical Care Time: No Discharge Plan Discharge Clinical Impression: Laceration of thumb Qualifiers: Encounter type: initial encounter Damage to nail status: without damage Foreign body presence: without foreign body Laterality: right Qualified Code(s): S61.011A - Laceration without foreign body of right thumb without damage to nail, initial encounter Patient Disposition: Home Condition: Stable Instructions: Antibiotic Form, Laceration (ED), Skin Adhesive Strips (ED) Additional Instructions: Your tetanus is updated today. Leave the Steri-Strips on for 1 week, they were all off on their own if they do not put please remove it. Wash the wound daily with mild soap and water. Do not soak or scrub the wound. Do not use peroxide or triple antibiotic ointment. You may apply Vaseline to the area daily. Please keep the wound dry and covered during the day using non adherent dressing symptoms the Band-Aid to keep it covered. You may leave it open to air at night. Follow-up with PCP in 3-5 days for wound recheck. If you developed worsening redness, swelling, pain, green/yellow drainage, fevers, body aches, chills, nausea, vomiting, or any serious concerns please go to the ER immediately. Please follow-up with hand specialist for any complications or if you lose the skin on the tip of your finger. Patient Language: Romanian Prescriptions: No Action estradiol-norethindrone acet 1-0.5 mg tablet 1 tablet PO DAILY albuterol sulfate 2.5 mg /3 mL (0.083 %) solution for nebulization 2.5 mg inhalation Q4-6H PRN (Reason: shortness of breath or wheezing) Qty: 90 3RF azelastine 137 mcg (0.1 %) spray,non-aerosol 1 spray intranasal Q12H Rx Instructions: administer into each nostril zolpidem 5 mg tablet 5 mg PO QHS PRN alprazolam 0.5 mg tablet 0.5 mg PO QHS PRN (Reason: anxiety) Qty: 30 2RF albuterol sulfate 90 mcg/actuation HFA aerosol inhaler 1 - 2 puff inhalation Q4-6H PRN (Reason: shortness of breath or wheezing) Qty: 8.5 2RF escitalopram oxalate 10 mg tablet 15 mg PO DAILY Qty: 135 1RF ascorbic acid (vitamin C) [Vitamin C] 1,000 mg Tablet 1 g PO DAILY valacyclovir 500 mg tablet 500 mg PO DAILY PRN (Reason: Cold Sores) Multivitamin Women 50 Plus 8 mg iron-400 mcg-50 mcg Tablet 1 tablet PO DAILY cetirizine [Zyrtec] 10 mg tablet 10 mg PO DAILY PRN losartan 25 mg tablet 25 mg PO DAILY Qty: 30 5RF Follow-up/Referrals: Sima Adkins MD [Physician, Plastic Surgery] Allie Dominguez NP [Primary Care Provider, Internal Medicine] Time of Disposition: 09:11
[2025-02-18] MEDS: TETANUS,DIPHTHERIA,AC PERTUSSIS ADULT (0.5 ML) BOOSTRIX IM (09:22)
== END 2025-02-18 09:30 | disposition home or self-care (01) ==
PROVIDERS: PCP Nurse Practitioner
DX: S61.011A Laceration without foreign body of right thumb without damage to nail, initial encounter (principal); I10 Essential (primary) hypertension; Z23 Encounter for immunization; W27.8XXA Contact with other nonpowered hand tool, initial encounter
CPT/HCPCS: 90471; 90715; 99212; G0463